=== PATIENT | male | born 1965 | race Caucasian/White ===

== ENCOUNTER 2021-12-25 00:23 | Day surgery (SDC) | payer OTHER, SELFPAY ==
[2021-12-21 12:48] VITALS: BMI 27.3
--- NOTE | 2021-12-21 12:58 | PC.NURSE ---
Report to the Outpatient Waiting Room, entrance under the green pavilion located off [facility], at time 0830 on date 12/25/21. OR Time: 1030. - You and your visitor will be asked a series of questions to screen for COVID 19 for your protection. - Only one visitor is allowed at this time. - The patient visitor is requested to leave or wait in car when not with patient. - A mask is required within the hospital. Patients may have clear liquids (water, carbonated beverages, clear teas, apple juice) until 3 hours prior to surgery with a maximum of 20 ounces. - No food from midnight until time of surgery Take the following medications with a SIP of water the morning of surgery: NONE Medications to discontinue per physician: ASPIRIN Date to take last dose: PER DR. ROBB Please no make-up, nail guinean, hairspray, perfume, deodorant, or body powder the day of surgery. No jewelry (including any body piercings) or valuables the day of surgery, leave them at home. Please take a shower or bath the night before, or the morning of, surgery with an antibacterial soap. Wear comfortable, loose fitting clothing. - Jewelry must be removed prior to entering the operating room. Rings and piercings that are not removed may be cut off. - The hospital will not accept responsibility for valuables. - Please leave all valuables, including medications, at home the day of surgery. If you are going home after surgery, a licensed [employer] driver must drive you home. - NO public transportation without another adult. - We recommend that an adult stay with you for 24 hours following discharge. - We also recommend that you do not drive, make important decision, drink alcoholic beverages, or take any drugs that were not prescribed by your health care provider for at least 24 hours after your discharge time. Follow any additional instructions given to you from your surgeon. If you or anyone in your household have experienced Covid symptoms in the past week, please notify your surgeon or the nurse liaison at the phone number below for possible testing. Telephone instructions given to PT - RUSTY LORENZANA and asked if any additional questions and then verbalized understanding. Patient advised to call surgeon office or pre surgery nurse liaison [phone] if any additional questions.
--- NOTE | 2021-12-24 07:23 | PM.IMHP ---
H&P: HPI History of Present Illness Date/Time: 12/24/21 07:23 Chief Complaint: left parotid tumor Narrative: planned surgical procedures [facility] Past Medical History Medical History Abdominal aortic aneurysm Arthritis Diabetes Social History Social History Smoking packs per day: 2 Smoking cigarettes per day: 40.0 Years smoked: 42 Smoking pack-years: 84.00 Smoking status: Current every day smoker Tobacco type: cigarettes Alcohol intake: never Substance use: never Substance use type: does not use Living arrangements: with family Spiritual care concerns: No Meds Home Medications and Allergies Home Medications Medication Instructions Recorded Confirmed Type aspirin 81 mg chewable tablet 81 mg PO DAILY 12/21/21 12/21/21 History atorvastatin 40 mg tablet 40 mg PO HS 12/21/21 12/21/21 History metformin 500 mg tablet 500 mg PO BID 12/21/21 12/21/21 History olmesartan 20 mg tablet 20 mg PO HS 12/21/21 12/21/21 History Allergies Allergy/AdvReac Type Severity Reaction Status Date / Time No Known Allergies Allergy Verified 12/21/21 12:46 Exam Narrative: left tail of parotid mass Assessment and Plan Assessment and plan (1) Mass of left parotid gland: Code(s): K11.8 - Other diseases of salivary glands Status: Acute Assessment and Plan: plan OR left-sided superficial parotidectomy with facial nerve monitoring risks discussed including bleeding infection facial nerve paralysis infection need for further procedures spread of tumor need for drain placement. Patient voiced understanding and agreed. 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
--- NOTE | 2021-12-24 14:31 | P.PNAN_ITS ---
Anes - Initial Pre Proc Eval Procedure: Operation Date: 12/25/21 10:30 Proposed Procedures p Left Parotidectomy - Sylvester Montelongo MD Date/Time: 12/24/21 14:31 Surgeon: Sylvester Montelongo MD Pre Op Diagnosis: Left parotid mass Patient Data Age: 56 Gender: M Height: 1.73 m Weight: 81.65 kg Allergies Allergy/AdvReac Type Severity Reaction Status Date / Time No Known Allergies Allergy Verified 12/25/21 08:55 Home Medications Medication Instructions Recorded Confirmed Type aspirin 81 mg chewable tablet 81 mg PO DAILY 12/21/21 12/21/21 History atorvastatin 40 mg tablet 40 mg PO HS 12/21/21 12/21/21 History metformin 500 mg tablet 500 mg PO BID 12/21/21 12/21/21 History olmesartan 20 mg tablet 20 mg PO HS 12/21/21 12/21/21 History Patient hx anesthesia problems: none Family hx anesthesia problems: none Results Review: All pre-operative results and documents have been reviewed as part of the pre- operative evaluation. [facility] Past Medical History Medical History (Updated 12/24/21 @ 14:33 by Bay Aguero MD) Abdominal aortic aneurysm repaired 01/10 Arthritis Back pain Cardiomyopathy Diabetes HTN (hypertension) Hyperlipidemia Social History Social History Smoking packs per day: 2 Smoking cigarettes per day: 40.0 Years smoked: 42 Smoking pack-years: 84.00 Smoking status: Current every day smoker Tobacco type: cigarettes Alcohol intake: never Substance use: never Substance use type: does not use Living arrangements: with family Spiritual care concerns: No Anes - Eval Final PreProcedure Day of Procedure 12/24/21 14:31 Patient weight: overweight Heart: regular rate and rhythm Lungs: clear to auscultation and normal air movement Airway: Mallampati scale class II Neurological: alert and oriented Last oral intake: >/= 8 hours ASA classification: III Emergent: no Anesthetic plan: proceed Anesthesia type and monitoring: general ETT Results Review: All pre-operative results and documents have been reviewed as part of the pre- operative evaluation. Informed Consent: The patient's anesthetic plan and its attendant risks and benefits were discussed with the patient/family/POA. Questions were solicited and answers provided to the satisfaction of the patient/family/POA.
[2021-12-25] VITALS (13 sets, daily range): BP systolic 103–140; BP diastolic 62–73; PULSE 73–89; RESP 14–22; TEMP 36.2–36.4; O2SAT 88–98
--- NOTE | 2021-12-25 07:09 | WPDHPUPDATE1 ---
History and Physical Update Update Date/Time: 12/25/21 07:09 History and Physical has been reviewed, including an updated exam of the patient. There are NO changes in the patient's condition. Risks, benefits, and alternatives have been discussed and questions answered. Patient agrees to proceed with procedure. 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
--- NOTE | 2021-12-25 07:59 | ECG_ITS ---
Measurements Intervals [place] Rate: 76 P: 44 WA: 172 QRS: 40 QRSD: 84 T: 48 QT: 364 QTc: 411 Interpretive Statements SINUS RHYTHM NORMAL ECG NO PREVIOUS ECG AVAILABLE FOR COMPARISON Electronically Signed On 12-25-2021 16:25:46 CDT by González Purvis M.D.
[2021-12-25] MEDS: LACTATED RINGERS 1,000 ML 30 ML IV CONT ×2 (09:00→12:52)
[2021-12-25 09:19] LABS: Glucose Point of Care 102 mg/dl (65-105)
[2021-12-25] MEDS: ceFAZolin 2 GM/D5W 50 ML 2 GM/50 ML BAG IVPB (10:30)
[2021-12-25] MEDS: LIDO 1%/EPINEPHRINE 1:100,000 10 ML VIAL INFILTRATE (10:50)
--- NOTE | 2021-12-25 13:09 | P.OP_ITS ---
Procedure Note - Detailed Date of Procedure 12/25/21 Pre-op Diagnosis Left parotid mass Post-op Diagnosis Same (Warthins tumor) Procedure Performed Left superficial parotidectomy Surgeon Sylvester Montelongo MD Anesthesia General Indications See above Findings Bilobed Warthin's tumor removed in totality some tumor spillage minimal bleeding no nerves identified Description of Procedure Patient identified consent verified. Patient brought operating room. Time-out performed. General anesthesia induced. Patient prepped and draped for for mentioned procedure 2nd time-out performed. Nims monitoring facial nerve monito ring confirmed. Modified face-lift incision made the portion below the earlobe and transcervical incision utilized dissected down to the parotid fascia with 15 blade Bovie and blunt dissection greater auricular nerve identified and preserved some anterior branches cut. Tumor identified parotid fascia incised tumor dissected out and pulled through complete tumor removal completed. No nerves were identified. The nerve stimulator did not stimulate at all during the case. Bleeding was controlled with bipolar electrocautery at a setting of 5. Fluted drain placed following the procedure incision closed with 3 0 interrupted Vicryl sutures. Skin glue utilized over the skin as closure was excellent. Patient tolerated the procedure well there is no obvious complications total blood loss 10 cc or less. I performed all dictated portions. Frozen pathology was obtained to confirm Warthin's which it did. Estimated Blood Loss -10.0 Drains Yes Packing No Pathology Yes Complications No immediate complications Condition Stable Disposition PACU
[2021-12-25 13:15] LABS: Glucose Point of Care 157 mg/dl (65-105)
[2021-12-25] MEDS: oxyCODONE HCL (*CRX) 5 MG TAB IR PO (14:27)
== END 2021-12-25 14:56 | disposition home or self-care (01) ==
PROVIDERS: Visit Provider Otolaryngology
PROC: (CPT 42410; principal; 2021-12-25 10:30)
DX: D11.0 Benign neoplasm of parotid gland (principal); I10 Essential (primary) hypertension; E11.9 Type 2 diabetes mellitus without complications; E78.5 Hyperlipidemia, unspecified; I42.9 Cardiomyopathy, unspecified; Z79.84 Long term (current) use of oral hypoglycemic drugs; Z79.82 Long term (current) use of aspirin; F17.210 Nicotine dependence, cigarettes, uncomplicated
CPT/HCPCS: 42410; 82948; 88305; 88331; 93005; A9270; J0330; J0690; J1100; J2250; J2405; J2704; J3010; J7120